=== PATIENT | male | born 1945 | race Caucasian/White ===

== ENCOUNTER 2023-10-27 15:12 | Outpatient (RCR) | payer MEDICARE, OTHER, SELFPAY | END 2023-10-27 23:59 | disposition home or self-care (01) | LOC: RPT 15:12 | PROVIDERS: ATTENDING PHYSICIAN Podiatrist Foot & Ankle Surgery; PRIMARYCARE PHYSICIAN Family Medicine | DX: I89.0 Lymphedema, not elsewhere classified (principal) | CPT/HCPCS: 97140; 97535 ==

== ENCOUNTER → 2024-02-22 13:53 | Outpatient (REF) | payer MEDICARE, OTHER, SELFPAY | LOC: HWEVLT 13:53 | PROVIDERS: ATTENDING PHYSICIAN Radiology Diagnostic Radiology | DX: I83.892 Varicose veins of left lower extremity with other complications (principal) | CPT/HCPCS: 93971 ==

== ENCOUNTER → 2024-07-26 11:35 | Outpatient (REF) | payer MEDICARE, OTHER, SELFPAY ==
[2024-07-26 12:08] LABS: % Basophils 0.5 % (0-2); % Eosinophils 1.7 % (0-6); % Immature Granulocytes 0.3 % (0-0.5); % Lymphocytes 24.6 % (20.5-51.1); % Monocytes 9.7 % (1.7-9.3); % Neutrophils 63.2 % (42.2-75.2); Absolute Eosinophils 0.1 10^3/uL (0-0.7); Absolute Lymphocytes 1.6 10^3/uL (1.2-3.4); Absolute Monocytes 0.6 10^3/uL (0.1-0.6); Absolute Neutrophils 4.1 10^3/uL (1.4-6.5); Hematocrit 48.1 % (39.0-52.0); Hemoglobin 16.2 g/dL (13.0-18.0); Mean Corp Hgb Conc. 33.7 g/dL (33.0-37.0); Mean Corpuscular Hgb 31.5 pg (27.0-31.0); Mean Corpuscular Volume 93.4 fL (80.0-94.0); Mean Platelet Volume 10.4 fL (7.4-10.4); Nucleated Red Blood Cells % 0 % (-); Platelet Count 159 10^3/uL (130-400); Red Blood Cell Count 5.15 10^6/uL (4.70-6.10); Red Cell Dist. Width 12.5 % (11.5-14.5); White Blood Cell Count 6.5 10^3/uL (4.8-10.8)
[2024-07-26 12:42] LABS: ALT (SGPT) 21 U/L (0-50); AST (SGOT) 31 U/L (17-59); Albumin 4.4 g/dl (3.5-5.0); Alkaline Phosphatase 82 U/L (38-126); Blood Urea Nitrogen 20 mg/dl (9-20); Calcium 9.6 mg/dl (8.4-10.2); Carbon Dioxide 30 mmol/L (22-30); Chloride 100 mmol/L (98-107); Glucose 91 mg/dl (70-99); HDL Cholesterol 56 mg/dl; LDL Cholesterol, Calculated 73 mg/dl; Magnesium 2.3 mg/dl (1.6-2.3); Potassium 4.8 mmol/L (3.5-5.1); Sodium 140 mmol/L (135-145); Total Bilirubin 0.9 mg/dl (0.2-1.3); Total Cholesterol 157 mg/dl (50-199); Total Protein 6.5 g/dl (6.3-8.2); Triglyceride 142 mg/dl (10-149); Very Low Density Lipoprotein 28 mg/dl (0-30); eGFR > 60.00
[2024-07-26 13:10] LABS: TSH 0.98 uIU/ml (0.47-4.68)
[2024-07-27 19:42] LABS: Hepatitis C Antibody Negative (Negative)
== END ==
LOC: REG 11:35
PROVIDERS: ATTENDING PHYSICIAN Family Medicine
DX: R22.2 Localized swelling, mass and lump, trunk (principal); M79.641 Pain in right hand; R53.82 Chronic fatigue, unspecified; I25.10 Atherosclerotic heart disease of native coronary artery without angina pectoris
CPT/HCPCS: 36415; 71046; 73120; 80053; 80061; 83735; 84443; 85025; 86803

== ENCOUNTER → 2024-08-03 12:46 | Outpatient (REF) | payer MEDICARE, OTHER, SELFPAY | LOC: HWRAD 12:46 | PROVIDERS: ATTENDING PHYSICIAN Family Medicine | DX: R22.2 Localized swelling, mass and lump, trunk (principal) | CPT/HCPCS: 76604 ==

== ENCOUNTER → 2024-11-29 09:11 | Outpatient (REF) | payer MEDICARE, OTHER, SELFPAY | LOC: HWRCS 09:11 | PROVIDERS: ATTENDING PHYSICIAN Student in an Organized Health Care Education/Training Program; FAMILY PHYSICIAN Family Medicine | DX: I34.0 Nonrheumatic mitral (valve) insufficiency (principal) | CPT/HCPCS: 93306 ==

== ENCOUNTER 2025-11-04 10:50 | Emergency (ER) | payer MEDICARE, OTHER, SELFPAY ==
[2025-11-04 11:15] VITALS: BP 156/65
[2025-11-04 11:43] LABS: Hematocrit 44.5 % (39.0-52.0); Hemoglobin 15.2 g/dL (13.0-18.0); Mean Corp Hgb Conc. 34.2 g/dL (33.0-37.0); Mean Corpuscular Volume 92.5 fL (80.0-94.0); Nucleated Red Blood Cells % 0 % (-); Platelet Count 187 10^3/uL (130-400); Red Cell Dist. Width 13.1 % (11.5-14.5)
[2025-11-04 11:59] LABS: ALT (SGPT) 21 U/L (0-50); AST (SGOT) 27 U/L (17-59); Albumin 4.0 g/dl (3.5-5.0); Alkaline Phosphatase 82 U/L (38-126); Blood Urea Nitrogen 21 mg/dl (9-20); Calcium 9.3 mg/dl (8.4-10.2); Carbon Dioxide 28 mmol/L (22-30); Chloride 104 mmol/L (98-107); Glucose 112 mg/dl (70-99); Potassium 4.3 mmol/L (3.5-5.1); Sodium 136 mmol/L (135-145); Total Protein 6.3 g/dl (6.3-8.2); eGFR > 60.00
[2025-11-04 12:08] LABS: Troponin I < 0.012 ng/ml
--- NOTE | 2025-11-04 15:15 | ED.GENMED ---
History of Present Illness
General
Chief Complaint: Fainting Sensation
Source: patient
Exam Limitations: none
Time Seen by Provider: 11/04/25 15:13
Nursing documentation reviewed up to this point in time: agreed with
History of Present Illness
History of Present Illness:
Patient is a 79-year-old male past medical history of hypertension hyperlipidemia [place] bypass , cardiac stents presents to the ER for evaluation. Patient reports this morning shortly getting up out of bed after 8 AM he felt' something come over me.'
He felt like he might pass out. He had no chest pain or shortness of breath. He did feel short of breath at the time but reports he felt very anxious over his symptoms. Episode lasted under 60 seconds. He does report when he had his [place] he had
chest pressure and had no chest pressure during this episode .He reports this did not feel anything similar to when he had his [place] in the past.
He is asymptomatic now.
He is followed by [facility] cardiology and is due to see Dr. Luis in the next 3 weeks.
Patient reports last night he was out when did have some alcohol beverages felt very dehydrated and felt a dry mouth throughout the night. He believes he may have a little dehydrated did not drink water throughout the night and episode happened
prior to drinking water this morning. He has no prior history of PE DVT denies any lower extremity swelling or clotting disorder.
Phy Exam
General Physical Exam
General Presentation: no apparent distress
General age: appears stated age
General Skin: warm and dry
General Habitus: elderly
General Mental: alert
General Hydration: dry mucous membranes
Cardiovascular Exam
Cardiovascular Exam: regular rate/rhythm, no murmur and normal peripheral pulses
Pulmonary Exam
Pulmonary Exam: lungs clear and no respiratory distress
Neurological Exam
Neurological Exam: alert and oriented x3
Musculoskeletal Exam
Musculoskeletal Exam: full ROM
Skin Exam
Skin Exam: normal color and warm/dry
Psychiatric Exam
Psychiatric Exam: normal mood/affect
Course
Orders/Labs/Results
Orders:
Orders
11/04/25 11:18
Electrocardiogram (*1) Urgent
Reason for Study: Chest Pain
EKG- Treatment ONCE
11/04/25 11:30
Complete Blood Count/With Diff Urgent
Comprehensive Metabolic Panel Urgent
Pro-BNP [NT-proBNP] Urgent
Troponin I Urgent
11/04/25 16:17
Electrocardiogram (*1) Urgent
Reason for Study: Chest Pain
EKG- Treatment ONCE
Orthostatic VS- Treatment ONCE
11/04/25 16:32
Troponin I Urgent
11/04/25 16:40
0.9% Sodium Chloride 1000 ml [Nss] 1,000 ml IV BOLUS
Abnormal Lab Results
11/04/25
11:30
MCH 31.6 H pg
(27.0-31.0)
Absolute Lymphs (auto) 0.9 L 10^3/uL
(1.2-3.4)
Lymphocytes % 14.9 L %
(20.5-51.1)
BUN 21 H mg/dl
(9-20)
Glucose 112 H mg/dl
(70-99)
11/04/25 11:30
11/04/25 11:30
Vital Signs
Initial and Last Documented VS:
Initial Vital Signs
Temp Pulse Resp BP Pulse Ox
98.4 F 80 20 156/65 97
11/04/25 11:15 11/04/25 11:15 11/04/25 11:15 11/04/25 11:15 11/04/25 11:15
Last Documented Vital Signs
Temp Pulse Resp BP Pulse Ox
98.4 F 70 17 156/65 97
11/04/25 11:15 11/04/25 16:39 11/04/25 16:39 11/04/25 11:15 11/04/25 16:39
MDM/Problems Addressed
MDM/Problems Addressed:
As documented patient is a 79-year-old male with history of CAD bypass presents for evaluation. He felt a little off this morning almost as if he would pass out shortly after getting out of bed. No associated chest pain. He does report he felt
slightly short of breath but he was anxious over his symptoms. Patient felt slightly near syncopal.
No associated chest pain. No acute abnormalities of vital signs. He does have very dry mouth on exam and reports he did drink alcohol last night and felt very thirsty throughout the night. This episode occurred prior to drinking fluids this
morning again he had no chest pain and his cardiac troponins negative. His lungs are clear. Chest x-ray ordered however patient does not want a chest x-ray.
Patient has been very well-appearing in no acute distress here in the ER. He has been asymptomatic since symptoms occurred. His vital signs are stable. His white count is normal. he denies any fevers .his hemoglobin is stable his BUN is minimally
elevated patient with dry mucous membranes likely mild dehydration. Symptoms likely from dehydration possible mild vasovagal episode.
Patient no associated chest pain has had 2 cardiac troponins which are negative.
He does have upcoming appoint with cardiology. Likely vasovagal episode from mild dehydration likely from drinking alcohol last night and minimal water intake.
Stable for discharge home.
*Pulse Oximetry
SaO2: 97
Oxygen Mode of Delivery: Room air
Patient hypoxic: no
*EKG
Interpreted by ED Provider?: Yes
Heart Rate: 71
Rate: normal
Rhythm: sinus
Ischemia: other (Repeat EKG unchanged)
*Critical Care Note
Total Time (30-74mins, 75-104mins- exclusive of procedures): Not Applicable
ED Attending Note
-
Portions of this chart may have been created with voice recognition software.� Occasional wrong word or��sound alike� substitutions may have occurred due to the inherent limitations of voice recognition software.
Discharge Plan
Departure
Patient Disposition: Home (Routine Discharge)
Date of Disposition: 11/04/25
Time of Disposition: 17:49
Patient with high blood pressure during this ER visit?: Yes
Condition: Fair
Covid-19: Not Applicable
Discharge Problem:
Lightheadedness
Instructions: Near Fainting (DC), Dehydration in adults - ED (DC), BLOOD PRESSURE
Prescriptions:
No Action
aspirin 81 MG tablet,delayed release (DR/EC)
81 mg PO DAILY
Zinc Chelated 50 MG tablet
50 mg PO DAILY
magnesium [magnesium gluconate] 200 MG tablet
200 mg PO DAILY
Chewable Multivit-A,B,D,E,K,Zn 1 EACH tablet,chewable
2 ea PO DAILY
Brown Seaweed Iodine
6 mcg PO DAILY
Vision Complete
2 tab PO DAILY
atorvastatin 40 MG tablet
40 mg PO HS Qty: 30 3RF
metoprolol tartrate 25 MG tablet
25 mg PO Q12 Qty: 60 3RF
Referrals:
Paul Hyatt MD [Active, Cardiology]
Alejandro Melendez MD [Family Provider, Family Practice]
Activity Restrictions/Additional Instructions:
As discussed please increase water intake. 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 In the meantime please follow-up with family doctor in the next several days for reevaluation of your symptoms. Return if any worsening of symptoms.
Interventions
Interventions:
*General Assessment Last Done: 11/04/25 11:15
*Neglect/Abuse Screening Last Done: 11/04/25 11:15
*ED COVID-19 Vaccine History Last Done: 11/04/25 16:41
*ED Influenza Vaccine History Last Done: 11/04/25 16:41
[facility] Fall Risk Assessment Tool Last Done: 11/04/25 10:51
*Risk Screen - Suicide (C-SSRS) Last Done: 11/04/25 11:15
ED- Cardiac Assessment Last Done: 11/04/25 16:41
ED- Neurological Assessment Last Done: 11/04/25 16:41
Discharge Date and Time
Print Language: BRITISH
[2025-11-04 16:17] VITALS: BP 143/108; BP 145/62; BP 152/84; PULSE 66; PULSE 72
[2025-11-04] MEDS: NSS 1000 IV (16:40)
[2025-11-04 17:09] LABS: Troponin I < 0.012 ng/ml
== END 2025-11-04 18:23 | disposition home or self-care (01) ==
LOC: EMR 10:50
PROVIDERS: Emergency Medicine; Nurse Practitioner; EMERGENCY PHYSICIAN Student in an Organized Health Care Education/Training Program; FAMILY PHYSICIAN Family Medicine
DX: R42 Dizziness and giddiness (principal); I10 Essential (primary) hypertension; E78.5 Hyperlipidemia, unspecified; I25.2 Old myocardial infarction; I25.10 Atherosclerotic heart disease of native coronary artery without angina pectoris; Z95.5 Presence of coronary angioplasty implant and graft
CPT/HCPCS: 99284; 80053; 83880; 84484; 85025; 93005